=== PATIENT | female | born 1960 | race Caucasian/White ===

== ENCOUNTER 2024-12-10 09:28 | Emergency (ER) | payer OTHER, MEDICARE ==
[~2024-12-10] VITALS: Ht 157.5 cm; Wt 77.1 kg
[2024-12-10] MEDS ORDERED: IBUP-1490 PO (11:35)
[2024-12-10 11:49] VITALS: BP 137/80; TEMP 98; O2SAT 100
== END 2024-12-10 11:49 | disposition home or self-care (01) ==
LOC: ER 09:40
DX: S62.616A Displaced fracture of proximal phalanx of right little finger, initial encounter for closed fracture (principal); J45.909 Unspecified asthma, uncomplicated; S00.83XA Contusion of other part of head, initial encounter; M25.512 Pain in left shoulder; W01.0XXA Fall on same level from slipping, tripping and stumbling without subsequent striking against object, initial encounter; Y93.89 Activity, other specified; Y92.89 Other specified places as the place of occurrence of the external cause; Y99.8 Other external cause status
CPT/HCPCS: 70450-TC; 70486-TC; 72125-TC; 73030-TC; 73130-TC